=== PATIENT | female | born 1995 | race Caucasian/White ===

== ENCOUNTER 2021-11-16 14:29 | Emergency (ER) | payer MEDICAID ==
[2021-11-16] MEDS ORDERED: Sodium Chloride 0.9% 1,000 ML IV ONE (14:37)
[2021-11-16] MEDS ORDERED: Morphine 4 MG/ML VIAL IVPUSH ONE (14:39)
[2021-11-16 15:08] LABS: BLOOD UREA NITROGEN,BUN 12 mg/dL (7.0-18.0); CARBON DIOXIDE,CO2 26.2 mmol/L (21.0-32.0); CHLORIDE,CL 103 mmol/L (98-107); GLUCOSE RANDOM 132 mg/dL (74-106); LIPASE 56 U/L (73-393); POTASSIUM,K 3.7 mmol/L (3.5-5.1); SODIUM,NA 139 mmol/L (136-145)
[2021-11-16] MEDS ORDERED: Ketorolac 30 MG/ML SDV IM ONE (17:45)
[2021-11-16] MEDS ORDERED: Iopamidol 755 MG/ML 500 ML Multipack Bottle IVPUSH ONE (18:14)
== END 2021-11-16 18:19 | disposition home or self-care (01) ==
LOC: MW.ED 14:29
DX: S16.1XXA Strain of muscle, fascia and tendon at neck level, initial encounter (principal); S29.012A Strain of muscle and tendon of back wall of thorax, initial encounter; Z88.5 Allergy status to narcotic agent; V80.010A Animal-rider injured by fall from or being thrown from horse in noncollision accident, initial encounter; Y93.52 Activity, horseback riding
CPT/HCPCS: 36415; 70450; 71260; 72125; 80053; 80307; 81003; 82550; 83690; 84703; 85025; 96372; 96374; 99284; J1885; J2270; J7030; Q9967

== ENCOUNTER 2023-12-26 14:44 | Emergency (ER) | payer BC, MEDICAID ==
[2023-12-26] MEDS: Diazepam 5 MG Tab PO ONE (15:17)
[2023-12-26 15:34] LABS: APPEARANCE,URINE CLEAR; BILIRUBIN,URINE NEGATIVE (NEGATIVE); COLOR,URINE YELLOW; GLUCOSE,URINE NEGATIVE (NEGATIVE); KETONES,URINE NEGATIVE (NEGATIVE); LEUKOCYTE ESTERASE,URINE NEGATIVE (NEGATIVE); NITRITE,URINE NEGATIVE (NEGATIVE); OCCULT BLOOD,URINE NEGATIVE (NEGATIVE); PROTEIN,URINE NEGATIVE (NEGATIVE); UROBILINOGEN,URINE 0.2 EU/dL (<2.0)
[2023-12-26] MEDS: Ketorolac 30 MG/ML SDV IM ONE (15:56)
== END 2023-12-26 16:59 | disposition home or self-care (01) ==
LOC: MW.ED 14:44
DX: M54.40 Lumbago with sciatica, unspecified side (principal); Z79.899 Other long term (current) drug therapy; Z75.8 Other problems related to medical facilities and other health care; Z88.5 Allergy status to narcotic agent
CPT/HCPCS: 51798; 81003; 81025; 96372; 99283; A9270; J1885